=== PATIENT | female | born 1985 | race Caucasian/White ===

== ENCOUNTER 2016-03-22 19:47 | Inpatient (IN) | payer SELFPAY ==
[~2016-03-22] VITALS: Ht 157.5 cm; Wt 68.5 kg
[~2016-03-22 19:47] MED LIST: CYAN100018 PO; NIF150 PO
--- NOTE | 2016-03-23 00:49 | ERD ---
ER Documentation Chief Complaint Date/Time DATE: 03/23/16 TIME: 00:48 Chief Complaint dizziness x 3 weeks HPI 30-year-old female presents here in emergency department for complaints of dizziness for 3 weeks. Patient has history of iron deficiency anemia, used to injections of iron since it is not dissolved by her body when she takes it orally. Patient has stopped having the injections for the last 6 months now. Patient started to feel dizzy, it feels the same when her hemoglobin was really low. Patient denies any other bleeding symptoms. Patient denies any vaginal bleeding. Patient denies any rectal bleeding. Patient denies any black stools. Patient does not have any bleeding in other parts of the body. Patient denies any ecchymosis or petechiae. She denies any chest pain. ROS All systems reviewed and are negative except as per history of present illness. Medications Home Meds Active Scripts Cyanocobalamin (B12 Health Booster) 1,000 Mcg/15 Ml Oral.susp, 1000 MCG PO DAILY , #30 Prov:RAMYA MASON 07/05/14 Polysaccharide Iron Complex* (NIFEREX-150*) 1 Cap Cap, 1 CAP PO BID, #60 CAP Prov:RAMYA MASON 07/05/14 Allergies Allergies: Coded Allergies: No Known Allergy (Verified , 03/23/16) PMhx/Soc History of Surgery: Yes (appendectomy, cholecystectomy) Anesthesia Reaction: No Hx Neurological Disorder: No Hx Respiratory Disorders: No Hx Cardiac Disorders: No Hx Psychiatric Problems: Yes (anxiety, depression ) Hx Miscellaneous Medical Probl: Yes (iron deficiency anemia) Hx Alcohol Use: No Hx Substance Use: No Hx Tobacco Use: No Smoking Status: Never smoker FmHx Family History: No coronary disease, No diabetes, No other Physical Exam Vitals Vital Signs Date Time Temp Pulse Resp B/P Pulse Ox O2 Delivery O2 Flow Rate FiO2 03/22/16 19:51 97.6 95 20 131/66 100 Physical Exam GENERAL: The patient is well developed and appropriate for usual state of health, in no apparent distress. Pale, pale conjunctiva. CHEST: Clear to auscultation bilaterally. There are no rales, wheezes or rhonchi. HEART: Regular rate and rhythm. No murmurs, clicks, rubs or gallops. No S3 or S4. ABDOMEN: Soft, nontender and nondistended. Good bowel sounds. No rebound or guarding. No gross peritonitis. No gross organomegaly or masses. No Arciniega sign or McBurney point tenderness. BACK: No midline or flank tenderness. EXTREMITIES: Equal pulses bilaterally. There is no peripheral clubbing, cyanosis or edema. No focal swelling or erythema. Full range of motion. Grossly neurovascularly intact. NEURO: Alert and oriented. Cranial nerves 2-12 intact. Motor strength in all 4 extremities with 5/5 strength. Sensation grossly intact. Normal speech and gait. SKIN: There is no apparent rash or petechia. The skin is warm and dry. HEMATOLOGIC AND LYMPHATIC: There is no evidence of excessive bruising or lymphedema. No gross cervical, axillary, or inguinal lymphadenopathy. Result Diagram: 03/23/16 0046 Results 24 hrs Laboratory Tests Test 03/23/16 00:46 Basophils # 0.010^3/ul Basophils % 0.3% Blood Morphology Comment Eosinophils # 0.210^3/ul Eosinophils % 2.9% Hematocrit 20.1% Hemoglobin 5.7g/dl Lymphocytes # 1.410^3/ul Lymphocytes % 24.9% Mean Corpuscular Hemoglobin 16.1pg Mean Corpuscular Hemoglobin Concent 28.4g/dl Mean Corpuscular Volume 56.8fl Mean Platelet Volume 9.8fl Monocytes # 0.710^3/ul Monocytes % 11.5% Neutrophils # 3.510^3/ul Neutrophils % 60.4% Nucleated Red Blood Cells # 0.010^3/ul Nucleated Red Blood Cells % 0.0/100WBC Platelet Count 45948^3/UL Red Blood Count 3.5410^6/ul Red Cell Distribution Width 20.7% Urine Bilirubin NEGATIVE Urine Clarity CLEAR Urine Color LT. YELLOW Urine Glucose NEGATIVE% Urine Hemoglobin NEGATIVE Urine Ketones NEGATIVE Urine Leukocyte Esterase NEGATIVE Urine Nitrite NEGATIVE Urine Specific [place] 1.025 Urine Total Protein NEGATIVE Urine Urobilinogen 0.2 E.U./dL Urine pH 6.0 White Blood Count 5.710^3/ul Patient has hemoglobin of 5.7 mg per DL, patient needs blood transfusion, most likely from iron deficiency anemia, but is concerned might attending physician, Dr. Johns, patient is transferred to ER 1 for further treatment, blood transfusion. Occult blood stool test was sent to the laboratory, pending results. Departure Diagnosis: Primary Impression: Anemia Anemia type: iron deficiency Iron deficiency anemia type: inadequate dietary iron intake Qualified Code: D50.8 - Iron deficiency anemia secondary to inadequate dietary iron intake Condition: KODY Montesinos NP Mar 23, 2016 00:49
[2016-03-23 01:10] LABS: BASOPHILS % 0.3 % (0.0-2.0); EOSINOPHILS # 0.2 10^3/ul (0.0-0.5); EOSINOPHILS % 2.9 % (0.0-7.0); HEMATOCRIT 20.1 % (37.0-47.0); LYMPHOCYTES # 1.4 10^3/ul (0.8-2.9); LYMPHOCYTES % 24.9 % (15.0-51.0); MEAN CORPUSCULAR HEMOGLOBIN 16.1 pg (29.0-33.0); MEAN CORPUSCULAR HGB CONC 28.4 g/dl (32.0-37.0); MEAN CORPUSCULAR VOLUME 56.8 fl (82.0-101.0); MEAN PLATELET VOLUME 9.8 fl (7.4-10.4); MONOCYTE # 0.7 10^3/ul (0.3-0.9); MONOCYTES % 11.5 % (0.0-11.0); NEUTROPHIL # 3.5 10^3/ul (1.6-7.5); NEUTROPHILS % 60.4 % (39.0-77.0); PLATELET COUNT 366 10^3/UL (140-440); RED BLOOD COUNT 3.54 10^6/ul (4.20-5.40); RED CELL DISTRIBUTION WIDTH 20.7 % (11.5-14.5); UNCORRECTED WBC 5.7 10^3/ul (4.8-10.8); WHITE BLOOD COUNT 5.7 10^3/ul (4.8-10.8)
[2016-03-23 01:12] LABS: ADD UMIC NO; URINE BILIRUBIN (Dip) NEGATIVE (NEGATIVE); URINE BLOOD (Dip) NEGATIVE (NEGATIVE); URINE COLOR LT. YELLOW (YELLOW); URINE GLUCOSE (Dip) NEGATIVE (NEGATIVE); URINE KETONES (Dip) NEGATIVE (NEGATIVE); URINE LEUKOCYTE ESTERASE (Dip) NEGATIVE (NEGATIVE); URINE NITRITE (Dip) NEGATIVE (NEGATIVE); URINE TOTAL PROTEIN (Dip) NEGATIVE (NEGATIVE); URINE UROBILINOGEN (Dip) 0.2 E.U./dL (0.1-1.0)
[2016-03-23 01:22] LABS: CONDITION 1; HEMOGLOBIN 5.7 g/dl (12.0-16.0); LH ANALYZER COMMENTS 1; SUSPECT 1
[2016-03-23 01:33] LABS: ALBUMIN 4.4 g/dl (3.3-4.9); POTASSIUM 3.4 mmol/L (3.5-5.1)
[2016-03-23 01:35] LABS: CREATININE 0.51 mg/dl (0.44-1.00)
[2016-03-23 01:36] LABS: ALBUMIN/GLOBULIN RATIO 1.25; BILIRUBIN,INDIRECT 0.3 mg/dl (0-1.1); BILIRUBIN,TOTAL 0.3 mg/dl (0.2-1.3); TOTAL PROTEIN 7.9 g/dl (6.1-8.1)
[2016-03-23] MEDS ORDERED: ACETAMINOPHEN 500 MG TAB PO STA (02:04)
[2016-03-23] MEDS ORDERED: SOD CHLORIDE 0.9% 1,000 ML IV ONE (02:30)
--- NOTE | 2016-03-23 05:53 | EN ---
Date/Time of Note Date/Time of Note DATE: 03/23/16 TIME: 05:49 ER Progress Note Workup of this patient was begun in ED 2. Called me with her hemoglobin results at her transferred to the side of the emergency room for monitoring and further treatment. She has extremely low hemoglobin symptomatic as well. She is placed on a airline pilot, EKG was obtained. She is given a liter of normal saline. She was transfused 2 units of blood in the emergency room. She states that her anemia is secondary to ambulate that just aren't. She was receiving IV iron supplementation up until 5 months ago when she stopped. She states that the section been a few months now that she is feeling increasingly weak and dizzy. She denies any GI bleeding. Has not vomited but has not had any dark stools. She is to be a transfusion she never had a GI bleed at that time. He has no pain currently. Critical care time 34 minutes: This includes time spent managing life- threatening symptomatically anemia, careful fluid administration, blood transfusion, multiple visits the patient's bedside before and after transfusion to assess her hemodynamic status, chart review, discussion with admitting doctor and patient, discussion with MARIANO. CATHERINE POSADAS DO Mar 23, 2016 05:53
[2016-03-23] MEDS ORDERED: ONDANSETRON 4 MG INJ IV PRN (06:00)
--- NOTE | 2016-03-23 07:04 | HP ---
Date/Time of Note Date/Time of Note DATE: 03/23/16 TIME: 06:57 Assessment/Plan VTE Prophylaxis VTE Prophylaxis Intervention: SCD's VTE Contraindication Reason: bleeding Assessment/Plan Assessment/Plan 30 yo F with 1. Recurrent Severe Symptomatic anemia with hypochromia and microcytosis 2. Chronic Iron and folate deficiency causing #1 thought to be 2/2 Malabsorption PLAN: transfusion / reassess after blood products given pain control/ antiemetics/ antipyretics/ supportive care as needed PROPHYLAXIS: Pepcid, SCDs, Lovenox, Heparin HPI/ROS Admit Date/Time Admit Date/Time 03/23/16 Hx of Present Illness PRESENTING COMPLAINT: dizziness HISTORY OF PRESENTING COMPLAINT: 30 yo F with recurrent multifactorial anemia with a predominant component of iron deficiency and Vit B12 deficiency thought to be 2/2 malabsorption syndrome who presents here in emergency department for complaints of dizziness for 3 weeks. Patient has history of iron deficiency anemia, used to injections of iron since it is not dissolved by her body when she takes it orally. Patient has stopped having the injections for the last 6 months now. Patient started to feel dizzy, it feels the same when her hemoglobin was really low. Patient denies any other bleeding symptoms. Patient denies any vaginal bleeding. Patient denies any rectal bleeding. Patient denies any black stools. Patient does not have any bleeding in other parts of the body. Patient denies any ecchymosis or petechiae. She denies any chest pain. ROS 12 point review if systems was done and pertinent findings are as noted. PMH/Family/Social Past Medical History * recurrent iron and folate deficiency anemia / malabsorption syndrome Past Surgical History Past Surgical Hx: cholecystectomy Family History Significant Family History: no pertinent family hx Social History Alcohol Use: none Smoking Status: Never smoker Drug Use: none Exam/Review of Systems Vital Signs Vitals Vital Signs Date Time Temp Pulse Resp B/P Pulse Ox O2 Delivery O2 Flow Rate FiO2 03/23/16 06:20 87 23 107/76 100 Room Air 03/23/16 05:05 98.1 Intake and Output 03/22/16 03/22/16 03/23/16 15:00 23:00 07:00 Intake Total 700 ml Balance 700 ml Labs Result Diagram: 03/23/16 0046 03/23/16 0046 Procedures Procedures Laboratory Tests Test 03/23/16 00:46 03/23/16 01:50 Alanine Aminotransferase (ALT/SGPT) 21IU/L Albumin 4.4g/dl Albumin/Globulin Ratio 1.25 Alkaline Phosphatase 75IU/L Anion Gap 20 Aspartate Amino Transf (AST/SGOT) 39IU/L Basophils # 0.010^3/ul Basophils % 0.3% Blood Morphology Comment Blood Urea Nitrogen 13mg/dl Calcium Level 9.0mg/dl Carbon Dioxide Level 24mmol/L Chloride Level 103mmol/L Creatinine 0.51mg/dl Direct Bilirubin 0.00mg/dl Eosinophils # 0.210^3/ul Eosinophils % 2.9% Globulin 3.50g/dl Glucose Level 99mg/dl Hematocrit 20.1% Hemoglobin 5.7g/dl Indirect Bilirubin 0.3mg/dl Lipase 105U/L Lymphocytes # 1.410^3/ul Lymphocytes % 24.9% Mean Corpuscular Hemoglobin 16.1pg Mean Corpuscular Hemoglobin Concent 28.4g/dl Mean Corpuscular Volume 56.8fl Mean Platelet Volume 9.8fl Monocytes # 0.710^3/ul Monocytes % 11.5% Neutrophils # 3.510^3/ul Neutrophils % 60.4% Nucleated Red Blood Cells # 0.010^3/ul Nucleated Red Blood Cells % 0.0/100WBC Platelet Count 00708^3/UL Potassium Level 3.4mmol/L Red Blood Count 3.5410^6/ul Red Cell Distribution Width 20.7% Sodium Level 144mmol/L Total Bilirubin 0.3mg/dl Total Protein 7.9g/dl Urine Bilirubin NEGATIVE Urine Clarity CLEAR Urine Color LT. YELLOW Urine Glucose NEGATIVE% Urine Hemoglobin NEGATIVE Urine Ketones NEGATIVE Urine Leukocyte Esterase NEGATIVE Urine Nitrite NEGATIVE Urine Specific [place] 1.025 Urine Total Protein NEGATIVE Urine Urobilinogen 0.2 E.U./dL Urine pH 6.0 White Blood Count 5.710^3/ul Stool Occult Blood NEGATIVE ER INTERVENTIONS Medications (Trade) Dose Ordered Sig/Sandi Route PRN Reason Start Time Stop Time Status Last Admin Dose Admin Acetaminophen 1000 mg 1,000 mg ONCE STAT PO 03/23/16 02:04 03/23/16 02:06 DC 03/23/16 02:20 1,000 MG Sodium Chloride (NS) 1,000 ml @ 1,000 mls/hr Q1H ONCE IV 03/23/16 02:30 03/23/16 03:29 DC 03/23/16 02:22 1,000 MLS/HR Ondansetron HCl (Zofran Inj) 4 mg BRIDGE ORDER PRN IV NAUSEA AND/OR VOMITING 03/23/16 06:00 03/24/16 05:59 Acetaminophen (Tylenol Tab) 650 mg ER BRIDGE PRN PO MILD PAIN/FEVER 03/23/16 06:00 03/24/16 05:59 PROCEDURE: US Pelvis CLINICAL INDICATION: Pelvic pain. TECHNIQUE: Transabdominal and transvaginal sonographic evaluation of the pelvis was performed. COMPARISON: No prior studies are available for comparison. FINDINGS: Myometrium is heterogeneous in echotexture without fibroids. Endometrium is thickened without a focal abnormality. Normal flow to both ovaries. No adnexal mass. No free pelvic fluid. MEASUREMENTS: Uterus: 10.2 x 4.9 x 5.6 cm, anteverted Endometrium: 1.7 cm Right ovary size: 8.5 cc Left ovary size: 8.0 cc IMPRESSION: 1. Thickening of the endometrial stripe, which may be related to secretory phase of menstrual cycle. 2. Heterogeneous uterus without discrete fibroid. 3. No adnexal cyst or mass. RPTAT: GSH .Rudy Daigle, Date Time Electronically viewed and signed by .Rudy Daigle, on 06/29/2014 22:37 ZAYRA WADSWORTH Mar 23, 2016 07:04
[2016-03-23] MEDS ORDERED: POTASSIUM CHLORIDE (SR) 20 MEQ TAB PO STA (07:08)
[2016-03-23] MEDS ORDERED: DIPHENHYDRAMINE 25 MG CAP PO PRN (07:30)
[2016-03-23] MEDS: ACETAMINOPHEN 325 MG TAB PO PRN ×3 (08:18→21:29)
[2016-03-23 08:20] VITALS: TEMP 98.1
[2016-03-23 09:01] VITALS: BP 127/77; PULSE 61; RESP 18
[2016-03-23 09:49] VITALS: Ht 157.5 cm; Wt 68.5 kg
[2016-03-23] MEDS: DOCUSATE SODIUM 100 MG CAP PO SCH ×2 (10:28→21:26)
[2016-03-23] MEDS: FAMOTIDINE 20 MG TAB PO SCH (10:28)
[2016-03-23] MEDS: traMADol 50 MG TAB PO PRN ×2 (10:28→17:29)
[2016-03-23 17:26] VITALS: BP 119/86; PULSE 70; RESP 16
[2016-03-23 20:00] VITALS: BP 111/70; PULSE 71; RESP 18
[2016-03-24 07:49] VITALS: BP 133/56; RESP 66
[2016-03-24 08:46] LABS: BASOPHILS % 0.2 % (0.0-2.0); EOSINOPHILS # 0.1 10^3/ul (0.0-0.5); EOSINOPHILS % 0.7 % (0.0-7.0); HEMATOCRIT 27.9 % (37.0-47.0); HEMOGLOBIN 8.3 g/dl (12.0-16.0); LYMPHOCYTES # 1.6 10^3/ul (0.8-2.9); LYMPHOCYTES % 20.7 % (15.0-51.0); MEAN CORPUSCULAR HGB CONC 29.8 g/dl (32.0-37.0); MEAN CORPUSCULAR VOLUME 67.1 fl (82.0-101.0); MEAN PLATELET VOLUME 11.7 fl (7.4-10.4); MONOCYTE # 0.4 10^3/ul (0.3-0.9); MONOCYTES % 4.8 % (0.0-11.0); NEUTROPHIL # 5.8 10^3/ul (1.6-7.5); NEUTROPHILS % 73.6 % (39.0-77.0); PLATELET COUNT 367 10^3/UL (140-440); RED BLOOD COUNT 4.15 10^6/ul (4.20-5.40); RED CELL DISTRIBUTION WIDTH 31.1 % (11.5-14.5); UNCORRECTED WBC 7.9 10^3/ul (4.8-10.8); WHITE BLOOD COUNT 7.9 10^3/ul (4.8-10.8)
[2016-03-24 08:59] LABS: CALCIUM 8.6 mg/dl (8.4-10.2)
[2016-03-24 09:13] LABS: CONDITION 1; CREATININE 0.63 mg/dl (0.44-1.00); LH ANALYZER COMMENTS 1; SUSPECT 1
[2016-03-24] MEDS: FAMOTIDINE 20 MG TAB PO SCH (09:37)
[2016-03-24] MEDS: traMADol 50 MG TAB PO PRN (09:37)
[2016-03-24] MEDS: DOCUSATE SODIUM 100 MG CAP PO SCH (09:37)
[2016-03-24] MEDS ORDERED: SOD FERRIC GLUC COMPLX 125 MG in SOD CHLORIDE 0.9% 100 ML IVPB ONE (11:30)
[2016-03-24] MEDS ORDERED: CYANOCOBALAMIN 1000 MCG INJ IM ONE (11:30)
--- NOTE | 2016-03-24 11:32 | PDOCDIS ---
Discharge Instructions DIAGNOSIS Discharge Diagnosis: Severe anemia due to persistent iron deficiency anemia and B12 deficiency CONDITION Patient Condition: Good HOME CARE INSTRUCTIONS: Diet Instructions: RegularSpecial Diet: reg ACTIVITY: Activity Restrictions: No Restrictions FOLLOW UP/APPOINTMENTS Appointments Please follow-up with primary care physician and especially follow-up with silo worker Dr. Cherry Gonzalez in 2 weeks CATHERINE OCONNELL MD Mar 24, 2016 11:32
--- NOTE | 2016-03-24 11:35 | DS ---
Date/Time of Note Date/Time of Note DATE: 03/24/16 TIME: 11:33 Discharge Summary Admission/Discharge Info Admit Date/Time Mar 23, 2016 at 05:34 Discharge Date/Time 03/24/2015 Final Diagnosis Severe iron deficiency anemia; B12 deficiency; Patient Condition: Good Consults None Procedures Transfusion packed cells; 1 infusion iron IV; 1 dose of B12 IM Hx of Present Illness PRESENTING COMPLAINT: dizziness HISTORY OF PRESENTING COMPLAINT: 30 yo F with recurrent multifactorial anemia with a predominant component of iron deficiency and Vit B12 deficiency thought to be 2/2 malabsorption syndrome who presents here in emergency department for complaints of dizziness for 3 weeks. Patient has history of iron deficiency anemia, used to injections of iron since it is not dissolved by her body when she takes it orally. Patient has stopped having the injections for the last 6 months now. Patient started to feel dizzy, it feels the same when her hemoglobin was really low. Patient denies any other bleeding symptoms. Patient denies any vaginal bleeding. Patient denies any rectal bleeding. Patient denies any black stools. Patient does not have any bleeding in other parts of the body. Patient denies any ecchymosis or petechiae. She denies any chest pain. Her last infusion of iron was roughly [address] Gonzalez [facility] Course Transfuse successfully without complication the patient symptomatically much better. We will give her a dose of iron IV as much as can be safely done in a single setting in a dosage of B12. She will follow-up with a tea and spice supervisor in the next 2 weeks. She has no known communicable diseases she is not has a to herself or others her rehabilitation potential is good is competent for medical decision-making Home Meds Active Scripts Cyanocobalamin (B12 Health Booster) 1,000 Mcg/15 Ml Oral.susp, 1000 MCG PO DAILY , #30 Prov:RAMYA MASNO 07/05/14 Polysaccharide Iron Complex* (NIFEREX-150*) 1 Cap Cap, 1 CAP PO BID, #60 CAP Prov:RAMYA MASON 07/05/14 Follow-up Plan Follow-up with tea and spice supervisor in 2 weeks Pending Labs Laboratory Tests Test 03/24/16 08:00 Anion Gap 16 (8-16) Basophils # 0.010^3/ul (0.0-0.1) Basophils % 0.2% (0.0-2.0) Blood Morphology Comment Blood Urea Nitrogen 12mg/dl (7-20) Calcium Level 8.6mg/dl (8.4-10.2) Carbon Dioxide Level 23mmol/L (21-31) Chloride Level 107mmol/L (97-110) Creatinine 0.63mg/dl (0.44-1.00) Eosinophils # 0.110^3/ul (0.0-0.5) Eosinophils % 0.7% (0.0-7.0) Glucose Level 88mg/dl (70-220) Hematocrit 27.9% (37.0-47.0) Hemoglobin 8.3g/dl (12.0-16.0) Lymphocytes # 1.610^3/ul (0.8-2.9) Lymphocytes % 20.7% (15.0-51.0) Mean Corpuscular Hemoglobin 20.0pg (29.0-33.0) Mean Corpuscular Hemoglobin Concent 29.8g/dl (32.0-37.0) Mean Corpuscular Volume 67.1fl (82.0-101.0) Mean Platelet Volume 11.7fl (7.4-10.4) Monocytes # 0.410^3/ul (0.3-0.9) Monocytes % 4.8% (0.0-11.0) Neutrophils # 5.810^3/ul (1.6-7.5) Neutrophils % 73.6% (39.0-77.0) Nucleated Red Blood Cells # 0.010^3/ul (0.0-0.0) Nucleated Red Blood Cells % 0.0/100WBC (0.0-0.0) Platelet Count 16269^3/UL (140-440) Potassium Level 4.0mmol/L (3.5-5.1) Red Blood Count 4.1510^6/ul (4.20-5.40) Red Cell Distribution Width 31.1% (11.5-14.5) Sodium Level 142mmol/L (135-144) White Blood Count 7.910^3/ul (4.8-10.8) CATHERINE OCONNELL MD Mar 24, 2016 11:35
[2016-03-24] MEDS: ACETAMINOPHEN 325 MG TAB PO PRN (13:06)
[2016-03-24 16:56] LABS: HEMATOCRIT 26.8 % (35.0-45.0); MCH 20.4 pg (27.0-33.0); MCV 68.2 fL (80.0-100.0); RDW 30.2 % (11.0-15.0); RED BLOOD CELL COUNT 3.93 Million/uL (3.80-5.10)
[2016-03-27 12:54] LABS: HEMOGLOBIN F <1.0 % (<2.0)
== END 2016-03-24 16:45 | disposition home or self-care (01) | DRG 812 ==
LOC: FTE 19:47 → PP2 03-23 05:34
PROVIDERS: ADMIT Family Medicine; ATTEND Family Medicine
PROC: 30233N1 Transfusion of Nonautologous Red Blood Cells into Peripheral Vein, Percutaneous Approach (ICD-10-PCS; principal; 2016-03-23)
DX: D50.9 Iron deficiency anemia, unspecified (principal); E53.8 Deficiency of other specified B group vitamins
CPT/HCPCS: 36415; 36430; 80048; 80053; 81003; 82270; 82955; 83020; 83690; 85025; 86850; 86900; 86901; 86920; 93005; J2916; J3420; J7030; P9016